=== PATIENT | female | born 1935 | race Caucasian/White ===

== ENCOUNTER → 2016-11-06 | Outpatient (CLI) | payer MEDICARE, BC ==
--- NOTE | 2016-11-06 13:42 | CT ---
EXAMINATION TYPE: CT shoulder RT wo con DATE OF EXAM: 11/06/2016 1:29 PM COMPARISON: NONE HISTORY: Preop planning, Pain and Primary Osteoarthritis CT DLP: 473 mGycm Automated exposure control for dose reduction was used. FINDINGS: Advanced osteoarthritic degenerative changes present at the right shoulder. Humeral head spurring is present. Spurring from the underlying is present. There is loss of the joint space. Portion of lung field included within the [id number] is clear acromioclavicular joint hypertrophy with downward spurring is present. Rotator cuff muscles are not well visualized. No obvious rotator c uff tear is not identified. No large joint effusion is evident. IMPRESSION: 1. ADVANCED OSTEOARTHRITIC DEGENERATIVE CHANGE AT THE GLENOHUMERAL JOINT LEFT SHOULDER. 2. ACROMIOCLAVICULAR JOINT HYPERTROPHY
== END | disposition home or self-care (01) ==
LOC: RADCTMAIN 12:02
PROVIDERS: ATTEND Orthopaedic Surgery Sports Medicine
DX: M19.011 Primary osteoarthritis, right shoulder (principal)

== ENCOUNTER → 2016-12-11 | Outpatient (CLI) | payer MEDICARE, BC ==
[2016-12-11 14:20] LABS: Amorphous Sediment,Urine Rare /hpf; Appearance,Urine Clear (Clear); Bacteria,Urine Rare /hpf; Basophils # (A) 0.1 k/uL (0-0.2); Basophils % (A) 2 %; Bilirubin,Urine Negative (Negative); CH 31.5; CHCM 31.4; Eosinophils # (A) 0.5 k/uL (0-0.7); Eosinophils % (A) 6 %; Glucose,Urine (UA) Negative (Negative); HCT 42.4 % (34.0-46.0); HDW 2.29; HGB 13.2 gm/dL (11.4-16.0); Ketones,Urine Negative (Negative); Leukocyte Esterase,Urine Small (Negative); Luc % (Auto) 2; Lymphocytes # (A) 1.1 k/uL (1.0-4.8); Lymphocytes % (A) 14 %; MCH 31.4 pg (25.0-35.0); MCHC 31.1 g/dL (31.0-37.0); Macrocytosis Slight; Mean Platelet Volume 8.7; Monocytes # (A) 0.4 k/uL (0-1.0); Monocytes % (A) 5 %; Neutrophils # (A) 5.9 k/uL (1.3-7.7); Neutrophils % (A) 72 %; Nitrite,Urine Negative (Negative); Particle Count 3032; Protein,Urine Negative (Negative); RBC,Urine 1 /hpf (0-5); RDW 13.8 % (11.5-15.5); Specific Gravity,Urine 1.005 (1.001-1.035); Squamous Epithelial Cell,Urine 1 /hpf (0-4); UA Billing (MACRO vs. MICRO) MICRO; Urobilinogen,Urine <2.0 mg/dL (<2.0); WBC 8.2 k/uL (3.8-10.6); WBC (Perox) 8.19; WBC,Urine 1 /hpf (0-5)
[2016-12-11 14:26] LABS: Partial Thromboplastin Time 24.4 sec (22.0-30.0); Prothrombin Time 10.5 sec (9.0-12.0)
[2016-12-11 14:34] LABS: ALT 28 U/L (9-52); AST 29 U/L (14-36); Alkaline Phosphatase 113 U/L (38-126); Anion Gap 8 mmol/L; Blood Urea Nitrogen 29 mg/dL (7-17); Calcium 9.5 mg/dL (8.4-10.2); Carbon Dioxide 30 mmol/L (22-30); Chloride 102 mmol/L (98-107); Glucose 114 mg/dL (74-99); Non-African American GFR(MDRD) 53 (>60 ml/min/1.73 sqM); Potassium 4.7 mmol/L (3.5-5.1); Sodium 140 mmol/L (137-145)
== END | disposition home or self-care (01) ==
LOC: LABPAT 13:46
PROVIDERS: ATTEND Orthopaedic Surgery Sports Medicine
DX: Z51.81 Encounter for therapeutic drug level monitoring (principal); Z79.01 Long term (current) use of anticoagulants
CPT/HCPCS: 80053; 81001; 85025; 85610; 85730; 87070

== ENCOUNTER 2016-12-18 10:47 | Inpatient (IN) | payer MEDICARE, BC ==
[2016-12-10 16:11] VITALS: BMI 33.1
[~2016-12-18 10:47] MED LIST: ACETAMINOPHEN TAB 500 MG TAB PO ONE; DEXAMETHASONE SOD PHOSPHATE 10 MG/ML 1 ML VIAL IV ONE; HYDROmorphone 1 MG/ML 1 ML SYRINGE IVP PRN; LACTATED RINGERS 1,000 ML IV SCH; LIDOCAINE 1% 20 ML VIAL (10MG/ML) FOR IV START INTRADERMA PRN; MELOXICAM 7.5 MG TAB PO ONE; MIDAZOLAM 2 MG/2 ML VIAL IV PRN; ONDANSETRON 4 MG/2 ML VIAL IVP ONE; SCOPOLAMINE 1.5MG/72HR PATCH TRANSDERM ONE; TRANEXAMIC ACID 1,000 MG in SODIUM CHLORIDE 0.9% 100 ML IVPB ONE; ceFAZolin 2 GM in SODIUM CHLORIDE 0.9% 100 ML IVPB ONE
[2016-12-18] MEDS ORDERED: NEOSTIGMINE 1 MG/ML 10 ML VIAL ONE (14:26)
[2016-12-18] MEDS ORDERED: MIDAZOLAM 2 MG/2 ML VIAL ONE (14:26)
[2016-12-18] MEDS ORDERED: fentaNYL (PF) 50 MCG/ML 2 ML AMP ONE (14:26)
[2016-12-18] MEDS ORDERED: SUCCINYLCHOLINE CHLORIDE 100 MG/5 ML SYR IV ONE (14:26)
[2016-12-18] MEDS ORDERED: GLYCOPYRROLATE 0.2 MG/ML 2 ML VIAL ONE (14:26)
[2016-12-18] MEDS ORDERED: TRANEXAMIC ACID 1,000 MG/10 ML VIAL ONE (14:26)
[2016-12-18] MEDS ORDERED: HYDROmorphone (PF) 1 MG/ML ONE (14:26)
[2016-12-18] MEDS ORDERED: SODIUM CHLORIDE 0.9% 100 ML BAG ONE (14:26)
[2016-12-18] MEDS ORDERED: LIDOCAINE 1% INJ 10MG/ML (20 ML MDV) ONE (14:26)
[2016-12-18] MEDS ORDERED: PROPOFOL 10 MG/ML 20 ML VIAL IV ONE (14:26)
[2016-12-18] MEDS ORDERED: ROCURONIUM BROMIDE 10 MG/ML 10 ML VIAL IV ONE (14:26)
[2016-12-18] MEDS ORDERED: ceFAZolin 3,000 MG in SODIUM CHLORIDE 0.9% IRRIGATIO 3,000 ML IRRIGATION ONE (15:14)
[2016-12-18] MEDS ORDERED: VANCOMYCIN 1,000 MG VIAL MISCELLANE ONE (15:22)
[2016-12-18] MEDS ORDERED: LACTATED RINGERS 1,000 ML IV ONE (16:16)
[2016-12-18] MEDS ORDERED: SENNOSIDES-DOCUSATE SODIUM 1 EACH TAB PO PRN (16:52)
[2016-12-18] MEDS ORDERED: ONDANSETRON 4 MG/2 ML VIAL IVP PRN (16:52)
[2016-12-18] MEDS ORDERED: METOCLOPRAMIDE 5 MG/ML 2 ML VIAL IVP PRN (16:52)
[2016-12-18] MEDS ORDERED: diphenhydrAMINE 25 MG CAP PO PRN (16:52)
[2016-12-18] MEDS ORDERED: HYDROmorphone 1 MG/ML 1 ML SYRINGE IVP PRN ×3 (16:52)
[2016-12-18] MEDS ORDERED: HYDROcodone/APAP 5-325MG 1 EACH TAB PO PRN (16:52)
[2016-12-18] MEDS ORDERED: TEMAZEPAM 15 MG CAP PO PRN (16:52)
[2016-12-18] MEDS ORDERED: PROCHLORPERAZINE SUPPOSITORY 25 MG SUPP RECTAL PRN (16:52)
[2016-12-18] MEDS ORDERED: HYDROmorphone 1 MG/ML 1 ML SYRINGE IVP ONE ×2 (17:08→17:14)
[2016-12-18] MEDS ORDERED: ONDANSETRON 4 MG/2 ML VIAL IVP ONE ×2 (17:19)
--- NOTE | 2016-12-18 17:21 | XR ---
EXAMINATION TYPE: XR shoulder limited RT DATE OF EXAM: 12/18/2016 5:15 PM COMPARISON: NONE HISTORY: Postop right shoulder surgery TECHNIQUE: Single view FINDINGS: There is a right shoulder prosthesis. Components appear in anatomic position. There is a la teral drain. IMPRESSION: Right shoulder prosthesis. No complicating process seen.
[2016-12-18] MEDS ORDERED: METOCLOPRAMIDE 5 MG/ML 2 ML VIAL IVP ONE (17:41)
[2016-12-18 18:08] LABS: Basophils % (A) 0 %; CH 30.6; Eosinophils % (A) 1 %; HCT 38.1 % (34.0-46.0); HDW 2.22; HGB 12.1 gm/dL (11.4-16.0); Hypochromasia Slight; Luc # (Auto) 0.06; Luc % (Auto) 1; Lymphocytes # (A) 0.6 k/uL (1.0-4.8); Lymphocytes % (A) 9 %; MCH 31.5 pg (25.0-35.0); MCHC 31.7 g/dL (31.0-37.0); MCV 99.4 fL (80.0-100.0); Mean Platelet Volume 8.4; Monocytes # (A) 0.1 k/uL (0-1.0); Monocytes % (A) 1 %; Neutrophils # (A) 6.5 k/uL (1.3-7.7); Neutrophils % (A) 88 %; RBC 3.83 m/uL (3.80-5.40); RDW 13.7 % (11.5-15.5); WBC 7.4 k/uL (3.8-10.6); WBC (Perox) 7.43
[2016-12-18] MEDS: HYDROcodone/APAP 5-325MG 1 EACH TAB PO PRN (19:08)
[2016-12-18] MEDS: LACTATED RINGERS 1,000 ML IV SCH (19:16)
[2016-12-18] MEDS: VALSARTAN 40 MG TAB PO SCH (21:14)
[2016-12-18] MEDS: MONTELUKAST 10 MG TAB PO SCH (21:14)
[2016-12-18] MEDS: DOXYCYCLINE 50 MG CAP PO SCH (21:14)
[2016-12-18] MEDS: FLECAINIDE 50 MG TAB PO SCH (21:14)
[2016-12-19] MEDS: LACTATED RINGERS 1,000 ML IV SCH ×3 (05:48→20:59)
[2016-12-19] MEDS: LEVOTHYROXINE 125 MCG TAB PO SCH (05:48)
[2016-12-19] MEDS: ASPIRIN 81 MG CHEW PO SCH (08:21)
[2016-12-19] MEDS: ceFAZolin 2 GM in SODIUM CHLORIDE 0.9% 100 ML IVPB SCH ×3 (08:21)
[2016-12-19] MEDS: DOXYCYCLINE 50 MG CAP PO SCH ×2 (08:21→20:56)
[2016-12-19] MEDS: LORATADINE 10 MG TAB PO SCH (08:22)
[2016-12-19] MEDS: FLECAINIDE 50 MG TAB PO SCH ×2 (08:22→20:56)
[2016-12-19] MEDS: hydrOXYzine PAMOATE 25 MG CAP PO PRN ×2 (08:23→17:24)
[2016-12-19] MEDS: HYDROcodone/APAP 5-325MG 1 EACH TAB PO PRN ×2 (08:23→17:24)
--- NOTE | 2016-12-19 10:30 | P.PN ---
Subjective Principal diagnosis: Status post right total shoulder arthroplasty Patient is a pleasant 81-year-old female seen at bedside this morning. She is postop day #1 status post right total shoulder arthroplasty/reverse total shoulder per Dr. Simon. Her pain is mostly controlled at the surgical site. She has no new complaints. She denies numbness or tingling in the upper extremity. Review of systems is negative for fever, chills, chest pain, shortness of breath, nausea, vomiting, headaches or other. Objective - Vital Signs Vital signs: Vital Signs Temp 97.7 F 12/19/16 07:00 Pulse 61 12/19/16 08:00 Resp 16 12/19/16 08:00 BP 125/65 12/19/16 07:00 Pulse Ox 98 12/19/16 07:00 Intake & Output 12/18/16 12/19/16 12/19/16 18:59 06:59 18:59 Intake Total 4800 Output Total 500 325 325 Balance 4300 -325 -325 Weight 84.822 kg 84.822 kg Intake: IV 4800 Output: Urine 100 325 325 Estimated Blood Loss 400 Other: Voiding Method Indwelling Catheter - Exam Inspection of the right shoulder reveals a benign surgical wound. There is no active bleeding, drainage or dehiscence. Sensation to light touch is intact throughout the right upper extremity. She has full motor at the elbow, wrist and hand. 2+ radial pulses present and less than 2 second capillary refill is present. - Constitutional General appearance: Present: no acute distress - Psychiatric Psychiatric: Present: A&O x's 3, appropriate affect, intact judgment & insight - Labs CBC & Chem 7: 12/18/16 17:44 Labs: Abnormal Lab Results - Last 24 Hours (Table) 12/18/16 Range/Units 17:44 Lymphocytes # 0.6 L (1.0-4.8) k/uL Assessment and Plan (1) Osteoarthritis of right shoulder Narrative/Plan: She'll continue with routine postop orthopedic protocol including pain management, wound care, DVT prophylaxis and medical management. The drain was discontinued without complication and new dressing was placed. She is pending extended care facility placement if she'll qualify otherwise she'll discharge to home likely tomorrow, December 20, 2016, and follow-up in office in [address] Simon. Status: Acute Time with Patient: Less than 30
[2016-12-19] MEDS: MULTIVITAMINS, THERA 1 EACH TAB PO SCH (12:26)
[2016-12-19] MEDS: VALSARTAN 40 MG TAB PO SCH ×2 (12:28→20:56)
[2016-12-19] MEDS: FUROSEMIDE 40 MG TAB PO SCH (13:06)
[2016-12-19] MEDS: FUROSEMIDE 20 MG TAB PO SCH (16:49)
[2016-12-19] MEDS: SPIRONOLACTONE 25 MG TAB PO SCH (16:49)
[2016-12-19] MEDS: MONTELUKAST 10 MG TAB PO SCH (20:56)
[2016-12-20] MEDS: LEVOTHYROXINE 125 MCG TAB PO SCH (05:08)
--- NOTE | 2016-12-20 09:12 | CONS ---
DATE OF CONSULTATION: 12/19/2016 REASON FOR CONSULTATION: Medical management requested by Dr. Simon. CONSULTATION: This is a pleasant 81 -year-old patient underwent right shoulder arthroplasty. Postprocedure, no nausea, vomiting. Did tolerate meals. The patient's chronic stable medical conditions include asthma, osteoarthritis, sleep apnea, hypothyroid. Denies any cardiac history. Sitting up in bed with right arm in support. Some pain is present. REVIEW OF SYSTEMS: CONSTITUTIONAL: None. HEENT: None. RESPIRATORY: None. CARDIOVASCULAR: None. GASTROINTESTINAL: None. GENITOURINARY: Stress incontinence. Dermatologic: None. HEMATOLOGIC: None. LYMPHATIC: None. PSYCHIATRY: None. NEUROLOGICAL: None. MUSCULOSKELETAL: Aches and pains in multiple joints. PAST MEDICAL HISTORY: History of asthma, osteoarthritis, sleep apnea, hypothyroid, urinary stress incontinence. PAST SURGICAL HISTORY: Breast surgery, hysterectomy, joint replacement, pacemaker. SOCIAL HISTORY: Does not smoke. Lives by himself. Alcohol rarely. FAMILY HISTORY: Kidney cancer. HOME MEDICATIONS: 1. Diovan 40 mg p.o. b.i.d. 2. Aldactone 25 mg. 3. Multivitamin 1 tablet p.o. daily. 4. Singulair 10 mg q.h.s. 5. ( ) 10 mg daily. 6. Synthroid 125 mcg p.o. daily. 7. Lasix 20 mg 3:00 p.m. and 40 mg morning. 8. Tambocor 50 mg p.o. q.12. 9. Vitamin D3, 2000 p.o. daily. 10. Aspirin 81 mg daily. 11. [place] 5 q.6 p.r.n. 12. Doxycycline 100 mg p.o. b.i.d. ALLERGIES TO SULFUR. On examination, temperature 98, pulse 51, respiratory rate 19, blood pressure 120/88, pulse ox 96% on 3 liters, and repeat 98% on room air. GENERAL APPEARANCE: Body mass index of 33.1, sitting in bed, not in distress. EYES: Pupils equal, conjunctivae normal. HEENT: External appearance of nose and ears normal. Oral cavity normal. NECK: JVD not raised. Mass not palpable. RESPIRATORY: Effort normal. Lungs are clear. CARDIOVASCULAR: First and second sounds normal. No edema. ABDOMEN: Soft, nontender. Liver and spleen not palpable. PSYCHIATRY: Alert and oriented x3. Mood and affect normal. EXTREMITIES: Right arm in a sling. MUSCULOSKELETAL: Evidence of osteoarthritis in multiple other joints. INVESTIGATIONS: White count 7.4, hemoglobin 12.1. ASSESSMENT: 1. Right total shoulder arthroplasty, right arm in a sling. 2. Mild intermittent asthma. 3. Primary osteoarthritis in multiple joints, bilateral. 4. Obstructive sleep apnea, CPAP machine. 5. Essential hypertension. 6. Hypothyroidism. 7. Chronic urinary stress incontinence. PLAN: Patient's home medications are resumed. DVT prophylaxis per Dr. Simon. Care was discussed with the patient. Pain is controlled. Patient follows with family doctor upon discharge. Thank you, Dr. Simon. Will follow.
--- NOTE | 2016-12-20 09:31 | OP ---
DATE OF SERVICE: 12/18/2016 SURGEON: JOCELYN VASQUEZ MD BENCH [employer]SEMBLY INSPECTOR: Jonh Alfaro PA-C. PREOPERATIVE DIAGNOSIS: Right shoulder advanced osteoarthrosis. POSTOPERATIVE DIAGNOSES: 1. Right shoulder advanced osteoarthrosis. 2. Right shoulder full-thickness rotator cuff tear. OPERATION: Right reverse total shoulder arthroplasty. ANESTHESIA: General endotracheal. ESTIMATED BLOOD LOSS: 400 mL. SPECIMENS REMOVED: COMPLICATIONS: None apparent. DRAINS: One deep drain. DISPOSITION: Postanesthesia care unit. OPERATIVE FINDINGS: INDICATIONS: Mrs. Garcia is a very pleasant 81-year-old female with long-standing right shoulder pain. Work-up including x-rays and CT scan revealed advanced glenohumeral osteoarthrosis of the right shoulder. At this point, she feels that she has failed conservative management and would like to proceed with operative intervention. The risks of the procedure were discussed with her in detail. These risks include, but are not limited to risk of infection, nerve damage, bleeding, pain, instability in the shoulder, loosening of implants and deep infection. There is also a small risk of deep vein deep vein thrombosis, which could lead to fatal pulmonary embolism. The patient understands the risks. All of her questions with regards to risks of the procedure were discussed with her and were answered to her satisfaction. Appropriate informed consent was obtained. DESCRIPTION OF THE PROCEDURE: Patient is identified in the preoperative holding area. Surgical site was marked by both the patient and myself. She was given 2 grams of Ancef IV for prophylactic purposes. She was transfer the operative suite. She was placed supine on the operating room table. General anesthetic was then administered and dosed per the anesthesia department without apparent complication. Examination under anesthesia was then performed of the right shoulder. She had passive elevation to 100 degrees, external rotation to side was to 20 degrees. The patient was then placed into the modified beach chair position, well padded in preparation for surgery. Great care was taken to ensure that her neck was in neutral alignment, well-padded and maintained that way throughout the operative procedure. Great care was also taken to pad her legs as well. The patient's right upper extremity was then prepped and draped usual sterile fashion. Standard surgical pause was then undertaken to ensure that we were operating on correct site and that appropriate preoperative antibiotics had been given. All staff in the room were in agreement and we proceeded. The acromion, AC joint, clavicle, and coracoid were marked with a surgical pen. A planned incision starting at the level of clavicle and extending distally over the deltopectoral interval approximately 1 cm lateral to the coracoid was marked with a surgical pen. This incision length is approximately 10 to 12 cm. The incision was then made with a 10 blade scalpel. Dissection was carried down sharply to the deltoid fascia. Hemostasis was achieved with electrocautery. The deltopectoral interval was then clearly identified at the level of clavicle. A small band retractor was then placed on the proximal deltoid. I then released the deltoid fascia on the lateral aspect of the cephalic vein. The vein was then preserved and left in its bed medially. The cephalic vein was protected throughout the remainder of the entire case. I then identified the clavipectoral fascia. This was incised proximally at the level of the coracoacromial ligament on the lateral aspect of the conjoined tendon. The coracoacromial ligament was then left intact. I then used my finger to spread the interval between the conjoined tendon and the subscapularis. I felt for the axillary nerve, which was readily palpable. I then cleared the subacromial and subdeltoid spaces of bursal and scar tissue. I then utilized a brown retractor to hold the deltoid and expose the humeral head. I then proceeded with release of the subscapularis. I first inspected the rotator cuff. She has a fairly sizable full-thickness tear of the supraspinatus. At this point, I made the decision to proceed with a reverse total shoulder arthroplasty given her age. Due to her age I feel the ability of the rotator cuff to reliably heal would be less than ideal and would subsequently put a standard anatomic total shoulder arthroplasty at risk. I then proceeded with releases of the subscapularis and the anterior inferior capsule. The subscapularis was released starting at the rotator interval and then intratendinously. The capsule and subscapularis release extended distally in a lazy S fashion, approximately 1 cm medial to the bicipital groove. I then continued to release the inferior capsule along the inferior neck in a vertical fashion, approximately 6 o'clock position. Great care was taken to ensure that the capsule was always visualized. It was released off of the bone to avoid injuring the axillary nerve. I then brought Santana business machine operator with the arm externally rotated and abducted. I continued to release the capsule inferomedially to the 4 o'clock position. The inferior osteophytes were now removed as well. This was done with rongeur. I then proceeded with preparation of the humerus. I removed all the goat's oconnor osteophytes. Then I removed the subchondral plate from the superior aspect of the humeral head using a large rongeur. I then used a starter reamer to gain access to the humeral canal. This was approximately 1 cm medial to the rotator cuff insertion and 1 cm posterior to the bicipital groove. I then prepared the humeral canal with hand reaming. I started with a 6 mm reamer and progressed in increments until firm resistance was encountered. This was at 10 mm. The reamer handle was then left in place. I then utilized the humeral resection guide. This was set at 30 years of retrotorsion. The cutting block was then set right at the insertion of the rotator cuff. I then proceeded to osteotomize the humeral head with an oscillating saw. I then removed the resection guide and then completed the osteotomy. I then proceeded with trial stem placement. A size 10 trial was then broached in the canal starting with 6 mm broach up to a 10 mm broach. A 10 mm trial stem was then placed and left in place. I then proceeded with exposure the glenoid. I inspected the joint for any loose bodies. The Bhattman retractor was then placed onto the posterior glenoid rim. The arm was then placed in approximately 70 degrees of abduction and in slight flexion on the Santana stand. I then proceeded to remove the hypertrophic labrum to definitively identify the actual glenoid. I then marked the center aspect of the glenoid. The guide with 10 degrees of inferior tilt was then placed flush with the glenoid. I then placed. I then placed a starting pin just inferior the center glenoid with a 10 degrees inferior tilt. I then proceeded with reaming. The baseplate reamer was then placed over the starting pin. This was advanced until it was flush with the glenoid. This preferentially resected more inferior bone than superior bone due to the 10 degree inferior tilt. I then placed a standard baseplate. This was then seated flush with the reamed glenoid. I then placed a 30 mm central screw. This screw had an excellent purchase in bone. I was able to rotate the scapula with the screw after it had been placed. I then proceeded to place the peripheral locking screws. The superior and inferior screws were placed and these were 20 mm screws. I did not place anterior and posterior screws. I then proceeded to place a size 36 glenosphere. This was preferentially dialed down in offset to inferiorly place the glenosphere as inferior as possible. The Cedillo taper was then dried and the glenosphere was then impacted into the baseplate. I then checked the glenosphere and it was securely impacted. I then proceeded to deliver the humeral head from the wound again. A size 36 standard baseplate was then placed onto the trial stem. Shoulder was then reduced. It was a fairly easy reduction. It was a little unstable once it was reduced. I then trialed with a +3 poly, standard baseplate. Again it was a fairly easy reduction. I then placed a +5 baseplate with a standard poly and this was a fairly difficult reduction. It was very stable once it was reduced. She had good motion. There was no evidence of impingement. I decided to go forward with a +5 tray and a standard poly. A bone hook was then utilized to re-dislocate the shoulder. Again, the proximal humerus delivered from the wound. The wound was thoroughly irrigated with sterile saline solution with antibiotic added. I then impacted a size 10 mini stem, in 30 degrees of retrotorsion. I then impacted the standard +5 tray in a standard poly onto the Cedillo taper of the stem. The shoulder was then reduced again. Again, it was fairly difficult reduction. The tension was excellent. She had minimal shuck. The conjoined tendon was inspected and there was no undue tension on the conjoined tendon to signify that I had over link in the arm. The shoulder was very stable throughout a range of motion. Again, there was no evidence of impingement. The wound again was thoroughly irrigated with sterile saline solution with antibiotic added. Deep drain was then placed and brought out superiorly away from the incision. I then placed of vancomycin powder within the wound. The deltopectoral interval was then closed loosely with 0 Vicryl interrupted suture. Prior to closure I did palpate the axillary nerve, which was intact. Again, the wound was thoroughly irrigated and then a second level of vancomycin powder was then placed into the wound. In total 1 gram of vancomycin powder was placed into the wound. The subcutaneous tissues then closed with 2-0 Vicryl interrupted suture and the skin was closed with a running 3-0 Quill suture. Dermabond was then applied to the incision. Sterile compressive dressings were then applied. The patient's right upper extremity was then placed into a standard sling. All sponge and needle counts were deemed correct prior to closure. The patient tolerated the procedure without apparent complication. She was transferred to recovery room in stable condition. Implants were a [employer] conference a reverse shoulder arthroplasty with a size 10 mini stem, a standard baseplate, a +5 tray and a standard poly.
[2016-12-20] MEDS: DOXYCYCLINE 50 MG CAP PO SCH (09:44)
[2016-12-20] MEDS: ASPIRIN 81 MG CHEW PO SCH (09:44)
[2016-12-20] MEDS: FUROSEMIDE 40 MG TAB PO SCH (09:45)
[2016-12-20] MEDS: FLECAINIDE 50 MG TAB PO SCH (09:45)
[2016-12-20] MEDS: LACTATED RINGERS 1,000 ML IV SCH (09:45)
[2016-12-20] MEDS: LORATADINE 10 MG TAB PO SCH (09:46)
[2016-12-20] MEDS: VALSARTAN 40 MG TAB PO SCH (09:46)
[2016-12-20] MEDS: HYDROcodone/APAP 5-325MG 1 EACH TAB PO PRN ×2 (09:52→15:18)
--- NOTE | 2016-12-20 10:19 | P.DS ---
Providers Date of admission: 12/18/16 10:47 Expected date of discharge: 12/20/16 Attending physician: Alhaji Simon Consults: 12/18/16 16:52 Consult Physician Routine Consulting Provider: Matty Wynn Consult Reason/Comments: post op medical management Do you want consulting provider notified?: Yes Primary care physician: Curtis Hammer - Discharge Diagnosis(es) (1) Osteoarthritis of right shoulder Current Visit: Yes Status: Acute Priority: Medium Hospital Course: This is a pleasant 81-year-old female who presented with osteoarthritis of the right shoulder who failed outpatient conservative therapy. She admitted for a right total shoulder arthroplasty performed by Dr. Alhaji Simon. The patient tolerated the procedure well and did well postoperatively. Condition on day of discharge stable. After further discussion with social media senior associate and her family, patient will be discharged home with home health care. Patient was cleared preoperatively for surgery by Dr. Hammer. Patient currently denies any nausea , vomiting, fever, or chills. Patient is eating and voiding freely without difficulty. Patient should remain nonweightbearing on the right upper extremity. She may remove dressing and shower 72 hours after discharge. She should maintain sling to right upper extremity at all times. She'll plan to follow up with Dr. Alhjai Simon in the office on 01/01/2017 and 11 AM. She is given prescriptions for [place] 5/325 mg 1 tab every 4 hours as needed for pain and doxycycline hyclate 10mg by mouth twice a day. Physical Exam on day of discharge: Patient is awake, alert, and oriented 3 Vital signs stable Good chest excursion with deep inspiration and expiration Abdomen soft nontender No signs or symptoms of DVT; no calf pain Dressing intact at the surgical site over the right shoulder; dressing is clean , dry, and intact Sling in place right upper extremity Active range of motion of the right elbow without significant difficulty Active full range of motion of the thumb on the fingers, and risks of the right upper extremity without difficulty Neurovascular intact right upper extremity Regulation Supervisor strength, thumb strength, interosseous strength, biceps strength, triceps strength, and shoulder strength positive sustained on the left Procedures: Right total shoulder arthroplasty Patient Condition at Discharge: Stable Plan - Discharge Summary New Discharge Prescriptions: Doxycycline Hyclate 100 mg PO BID #10 tab HYDROcodone/APAP 5-325MG [[place] 5-325] 1 tab PO Q4HR PRN #60 tab PRN Reason: Pain Discharge Medication List Aspirin 81 mg PO DAILY 12/10/16 [History] Cholecalciferol [Vitamin D3] 2,000 unit PO DAILY 12/10/16 [History] Flecainide [Tambocor] 50 mg PO Q12HR 12/10/16 [History] Furosemide [Lasix] 20 mg PO DAILY@1500 12/10/16 [History] Furosemide [Lasix] 40 mg PO DAILY 12/10/16 [History] Levothyroxine Sodium [Synthroid] 125 mcg PO DAILY 12/10/16 [History] Loratadine [Claritin] 10 mg PO DAILY 12/10/16 [History] Montelukast Sodium [Singulair] 10 mg PO HS 12/10/16 [History] Multivitamins, Thera [Multivitamin] 1 tab PO DAILY 12/10/16 [History] Spironolactone [Aldactone] 25 mg PO 1500 12/10/16 [History] Valsartan [Diovan] 40 mg PO BID 12/10/16 [History] Acetaminophen Tab [Tylenol Tab] 500 - 1,000 mg PO Q6HR PRN 12/11/16 [History] Doxycycline Hyclate 100 mg PO BID #10 tab 12/19/16 [Rx] HYDROcodone/APAP 5-325MG [[place] 5-325] 1 tab PO Q4HR PRN #60 tab 12/19/16 [Rx] Follow up Appointment(s)/Referral(s): Alhaji Simon MD [STAFF PHYSICIAN] - 01/01/17 11:00 am Activity/Diet/Wound Care/Special Instructions: Take meds as directed Follow up with Dr. Simon in office [phone] May shower in 72 hours Nonweightbearing right upper extremity Keep wound clean and dry [facility]- Discharge Disposition: HOME SELF-CARE
[2016-12-20] MEDS: MULTIVITAMINS, THERA 1 EACH TAB PO SCH (12:57)
[2016-12-20 13:03] VITALS: BP 118/55; PULSE 61; TEMP 98.1
[2016-12-20] MEDS: FUROSEMIDE 20 MG TAB PO SCH (15:18)
[2016-12-20] MEDS: SPIRONOLACTONE 25 MG TAB PO SCH (15:19)
[2016-12-20 15:45] VITALS: RESP 16
--- NOTE | 2016-12-20 21:11 | PN ---
DATE OF SERVICE: 12/20/2016 PRESENTING COMPLAINT: Right shoulder arthroplasty. INTERVAL HISTORY: This patient was seen by me this morning, doing much better. Some pain is present. Appetite has dwindled, comfortable otherwise. Review systems done for constitutional, cardiovascular, GI, pulmonary, musculoskeletal; relevant findings as above. Current medications are reviewed. On examination, temperature 98.1, temperature 97.7, pulse 62, respirations 18, blood pressure 126/57. Pulse ox 93% on 3L. GENERAL APPEARANCE: Lying in bed, comfortable. EYES: Pupils equal. Conjunctivae normal. NECK: JVD not raised. Mass not palpable. RESPIRATORY: Effort normal. Lungs are clear. CARDIOVASCULAR: First and second sounds normal. No edema. ABDOMEN: Soft, nontender. Liver and spleen not palpable. PSYCHIATRY: Alert and oriented x3. Mood and affect normal. EXTREMITIES: Right arm in a sling. Sensation preserved in the hand. INVESTIGATIONS: No blood work from today. ASSESSMENT: 1. Right total shoulder arthroplasty. Right arm in a sling. 2. Mild intermittent asthma. 3. Primary osteoarthritis of multiple joints, bilateral. 4. Obstructive sleep apnea, continuous positive airway pressure machine used. 5. Essential hypertension. 6. Hypothyroidism. 7. Chronic urinary stress incontinence. PLAN: Continue medications and treatment plan. If discharged, should follow with the family doctor.
== END 2016-12-20 15:15 | disposition home health service (06) | DRG 483 ==
LOC: 2ORMAIN 10:47 → 3SUR 16:52
PROVIDERS: ADMIT Orthopaedic Surgery Sports Medicine; ATTEND Orthopaedic Surgery Sports Medicine
PROC: 0RRJ00Z Replacement of Right Shoulder Joint with Reverse Ball and Socket Synthetic Substitute, Open Approach (ICD-10-PCS; principal; 2016-12-18 13:55)
DX: M19.011 Primary osteoarthritis, right shoulder (principal); I10 Essential (primary) hypertension; E03.9 Hypothyroidism, unspecified; M19.91 Primary osteoarthritis, unspecified site; M75.121 Complete rotator cuff tear or rupture of right shoulder, not specified as traumatic; J45.20 Mild intermittent asthma, uncomplicated; G47.33 Obstructive sleep apnea (adult) (pediatric); N39.3 Stress incontinence (female) (male); Z90.710 Acquired absence of both cervix and uterus; Z96.60 Presence of unspecified orthopedic joint implant; Z95.0 Presence of cardiac pacemaker; Z79.82 Long term (current) use of aspirin; Z79.899 Other long term (current) drug therapy
CPT/HCPCS: 85025; 88305; 88311

== ENCOUNTER 2018-02-22 02:29 | Observation (INO) | payer MEDICARE, BC ==
[2018-02-22] MEDS ORDERED: NALOXONE 0.4 MG/ML 1 ML VIAL IV PRN (02:41)
[2018-02-22] MEDS ORDERED: SODIUM CHLORIDE 0.9% 1,000 ML IV SCH (02:45)
--- NOTE | 2018-02-22 02:47 | ED ---
Dizziness HPI - General Chief Complaint: Syncope Stated Complaint: Neuro Problems Time Seen by Provider: 02/22/18 02:41 Source: patient, EMS Mode of arrival: EMS Limitations: no limitations - History of Present Illness Initial Comments: This patient is an 82-year-old woman transferred here from the outside hospital to have further evaluation after a near syncopal episode. The patient states that she was in the act of taking her garbage out tonight. She was walking down the driveway carrying it when she began feeling like she would pass out. She was feeling a bit short of breath and sweaty. She states that she had to lean over the garbage can to keep from falling over. The patient's daughter came to her home and when the patient was not feeling better after 20-30 minutes called EMS. The ambulance brought the patient to the other hospital and it was during the ride there that she began to feel better. The patient states that she is only feeling somewhat fatigued now, all of the original symptoms have resolved. Patient denies any chest pain at the time. MD Complaint: near syncope -: hour(s) Timing: sudden onset Description: lightheadedness, nausea History of Same: No History of Trauma: No Severity: severe - Related Data Home Medications Medication Instructions Recorded Confirmed Aspirin 81 mg PO DAILY 12/10/16 02/22/18 Cholecalciferol [Vitamin D3] 2,000 unit PO DAILY 12/10/16 02/22/18 Furosemide [Lasix] 20 mg PO DAILY@1500 12/10/16 02/22/18 Levothyroxine Sodium [Synthroid] 125 mcg PO DAILY 12/10/16 02/22/18 Loratadine [Claritin] 10 mg PO DAILY 12/10/16 02/22/18 Montelukast Sodium [Singulair] 10 mg PO HS 12/10/16 02/22/18 Albuterol Inhaler [Ventolin Hfa 1 - 2 puff INHALATION RT-Q6H PRN 02/22/18 Inhaler] Apixaban [Eliquis] 5 mg PO BID 02/22/18 02/22/18 Flecainide Acetate 100 mg PO Q12H 02/22/18 02/22/18 Furosemide [Lasix] 40 mg PO DAILY 02/22/18 02/22/18 Ubidecarenone [Co Q-10] 100 mg PO DAILY 02/22/18 02/22/18 Previous Rx's Medication Instructions Recorded Cefuroxime Axetil [Ceftin] 500 mg PO BID #6 tab 02/23/18 Metoprolol Succinate (ER) [Toprol 50 mg PO DAILY #30 tab.er.24h 02/24/18 XL] Valsartan [Diovan] 40 mg PO BID #60 tab 02/24/18 Allergies Allergy/AdvReac Type Severity Reaction Status Date / Time Sulfa (Sulfonamide Allergy Rash/Hives Verified 02/22/18 12:24 Antibiotics) Review of Systems ROS Statement: Those systems with pertinent positive or pertinent negative responses have been documented in the HPI. ROS Other: All systems not noted in ROS Statement are negative. Past Medical History Past Medical History: Asthma, Osteoarthritis (OA), Sleep Apnea/CPAP/BIPAP, Thyroid Disorder Additional Past Medical History / Comment(s): ARRHYTHMIA History of Any Multi-Drug Resistant Organisms: None Reported Past Surgical History: Breast Surgery, Hysterectomy, Joint Replacement, Pacemaker Additional Past Surgical History / Comment(s): CATARACT SURGERY, RIGHT AND LEFT KNEE, ARTHROSCOPIC RIGHT AND LEFT KNEE, Past Anesthesia/Blood Transfusion Reactions: No Reported Reaction Type of Cardiac Device: Permanent Pacemaker Device Placement Date:: 10/28/2011 Past Psychological History: No Psychological Hx Reported Smoking Status: Never smoker Past Alcohol Use History: Rare Past Drug Use History: None Reported - Past Family History Mother Family Medical History: Cancer Additional Family Medical History / Comment(s): KIDNEY CANCER General Exam Limitations: no limitations General appearance: alert, in no apparent distress Head exam: Present: atraumatic, normocephalic Eye exam: Present: normal appearance. Absent: scleral icterus, conjunctival injection ENT exam: Present: normal oropharynx Neck exam: Present: normal inspection, full ROM Respiratory exam: Present: normal lung sounds bilaterally. Absent: respiratory distress, wheezes, rales, rhonchi, stridor Cardiovascular Exam: Present: regular rate, normal rhythm, systolic murmur. Absent: diastolic murmur, rubs, gallop GI/Abdominal exam: Present: soft. Absent: distended, tenderness, guarding, rebound, rigid Extremities exam: Present: normal inspection, normal capillary refill. Absent: pedal edema, calf tenderness Back exam: Absent: CVA tenderness (R), CVA tenderness (L) Neurological exam: Present: alert Skin exam: Present: warm, dry, intact, normal color. Absent: rash Course Vital Signs 02/22/18 02/22/18 02/22/18 02:34 03:02 04:00 Temperature Pulse Rate 104 H 109 H 100 Respiratory 18 16 16 Rate Blood Pressure 156/105 149/96 150/97 O2 Sat by Pulse 95 100 97 Oximetry 02/22/18 04:15 Temperature 97.7 F Pulse Rate Respiratory Rate Blood Pressure O2 Sat by Pulse Oximetry EKG Findings - EKG Comments: EKG Findings:: The 12-lead ECG demonstrates what appears to be underlying atrial fibrillation and there are sections of paced rhythm as well, the rate is 100 BPM. - EKG Results: EKG: interpreted by ERMD, normal axis - Blocks, Antoine, Hypertrophy, ST Abn: AV and intraventricular conduction: right bundle branch block (fixed/ intermittent, complete/incomplete) (Incomplete) Repolarization changes or abnormalities: nonspecific abnormality, ST segment, and/or T wave Medical Decision Making - Lab Data Result diagrams: 02/24/18 06:22 02/24/18 06:22 Disposition Clinical Impression: Near syncope Disposition: ADMITTED IP TO THIS [facility] Condition: Fair Is patient prescribed a controlled substance at d/c from ED?: No
[2018-02-22] MEDS ORDERED: NITROGLYCERIN SL TABS 0.4 MG TAB SUBLINGUAL PRN (03:11)
[2018-02-22] MEDS ORDERED: HYDROcodone/APAP 5-325MG 1 EACH TAB PO PRN (03:14)
[2018-02-22] MEDS: LEVOTHYROXINE 125 MCG TAB PO SCH (06:24)
[2018-02-22] MEDS: CHOLECALCIFEROL 1,000 UNIT TAB PO SCH (08:17)
[2018-02-22] MEDS: MULTIVITAMINS, THERA 1 EACH TAB PO SCH (08:18)
[2018-02-22] MEDS: VALSARTAN 40 MG TAB PO SCH ×2 (08:18→21:58)
[2018-02-22] MEDS ORDERED: FLECAINIDE 50 MG TAB PO SCH (09:00)
--- NOTE | 2018-02-22 11:38 | P.CNNES ---
History of Present Illness Consult date: 02/22/18 History of Present Illness: The patient is an 82-year-old right-handed white female been having dizzy spells for the past several weeks. She states that she feels a lightheadedness as if she needs to sit down. Yesterday she felt so bad that while taking out the trash that she had a lean against trash can. She also felt sweaty. She denied any neurologic complaints such as focal weakness numbness tingling visual disturbance loss of speech or vertigo. Next Patient sees an ENT doctor for her right ear tube that has been draining constantly and recent ear infection. She saw him last week. Patient has a pacemaker. She was hospitalized August because of malfunction of her pacemaker. Patient was started on Alquist at the time. Next The patient was transferred here from an outside hospital for according to the patient and MRI. The patient does have a pacemaker however. The patient had a CT brain at the outside hospital which showed a medial has no mass possible goiter. CAT scan of the brain was unremarkable. Review of Systems Constitutional: Denies chills, Denies fever Eyes: denies blurred vision, denies pain Ears, nose, mouth and throat: Denies headache, Denies sore throat Cardiovascular: Denies chest pain, Denies shortness of breath Respiratory: Denies cough Musculoskeletal: Denies myalgias Neurological: Denies numbness, Denies weakness Past Medical History Past Medical History: Asthma, Osteoarthritis (OA), Sleep Apnea/CPAP/BIPAP, Thyroid Disorder Additional Past Medical History / Comment(s): ARRHYTHMIA History of Any Multi-Drug Resistant Organisms: None Reported Past Surgical History: Breast Surgery, Hysterectomy, Joint Replacement, Pacemaker Additional Past Surgical History / Comment(s): CATARACT SURGERY, RIGHT AND LEFT KNEE, ARTHROSCOPIC RIGHT AND LEFT KNEE, Past Anesthesia/Blood Transfusion Reactions: No Reported Reaction Type of Cardiac Device: Permanent Pacemaker Device Placement Date:: 10/28/2011 Past Psychological History: No Psychological Hx Reported Smoking Status: Never smoker Past Alcohol Use History: Rare Past Drug Use History: None Reported - Past Family History Mother Family Medical History: Cancer Additional Family Medical History / Comment(s): KIDNEY CANCER Medications and Allergies Home Medications Medication Instructions Recorded Confirmed Type Aspirin 81 mg PO DAILY 12/10/16 12/18/16 History Cholecalciferol [Vitamin D3] 2,000 unit PO DAILY 12/10/16 12/18/16 History Flecainide [Tambocor] 50 mg PO Q12HR 12/10/16 12/18/16 History Furosemide [Lasix] 20 mg PO DAILY@1500 12/10/16 12/18/16 History Furosemide [Lasix] 40 mg PO DAILY 12/10/16 12/18/16 History Levothyroxine Sodium [Synthroid] 125 mcg PO DAILY 12/10/16 12/18/16 History Loratadine [Claritin] 10 mg PO DAILY 12/10/16 12/18/16 History Montelukast Sodium [Singulair] 10 mg PO HS 12/10/16 12/18/16 History Multivitamins, Thera [Multivitamin] 1 tab PO DAILY 12/10/16 12/18/16 History Spironolactone [Aldactone] 25 mg PO 1500 12/10/16 12/18/16 History Valsartan [Diovan] 40 mg PO BID 12/10/16 12/18/16 History Acetaminophen Tab [Tylenol Tab] 500 - 1,000 mg PO Q6HR PRN 12/11/16 12/18/16 History Doxycycline Hyclate 100 mg PO BID #10 tab 12/19/16 Rx HYDROcodone/APAP 5-325MG [[place] 1 tab PO Q4HR PRN #60 tab 12/19/16 Rx 5-325] Allergies Allergy/AdvReac Type Severity Reaction Status Date / Time Sulfa (Sulfonamide Allergy Rash/Hives Verified 12/18/16 19:03 Antibiotics) Physical Examination - Vital Signs Vital Signs: Vital Signs Temp Pulse Pulse Resp BP BP Pulse Ox 02/22/18 07:00 98.0 F 113 H 16 134/91 95 02/22/18 04:15 97.7 F 02/22/18 04:00 100 16 150/97 97 02/22/18 03:02 109 H 16 149/96 100 02/22/18 02:34 104 H 18 156/105 95 Intake and Output 02/21/18 02/22/18 02/22/18 22:59 06:59 14:59 Other: Weight 127.006 kg - Constitutional General appearance: cooperative - EENT EENT: PERRL - Respiratory Respiratory: lungs clear - Cardiovascular Cardiovascular: regular rate, normal S1, normal S2 - Integumentary Integumentary: normal - Neurologic Mental status: She was awake alert and oriented. There is no a aphasia or dysarthria. Cranial nerve examination: PERRL, EOMI, face symmetric, tongue midline Speech examination: intact Detailed motor examination: grossly full strength in all extremities Detailed sensory examination: intact - Psychiatric Psychiatric: mood/affect appropriate Assessment and Plan (1) Near syncope Current Visit: Yes Status: Acute SNOMED Code(s): 806066568 Plan: The patient is a 82-year-old woman with history of near syncope. She has been having episodes of lightheadedness as if she is going to pass out but there was no loss of consciousness. The patient does have tachycardia. She has a pacemaker. She is had a CTA at the outside hospital which did not show any significant stenosis. She has also had a CT brain which did not show any acute findings. The patient states she was placed on eliquis by her rigger up. Recommend cardiology evaluation.
[2018-02-22 13:24] LABS: Basophils # (A) 0.1 k/uL (0-0.2); Basophils % (A) 1 %; Eosinophils # (A) 0.6 k/uL (0-0.7); Eosinophils % (A) 9 %; HCT 41.4 % (34.0-46.0); HGB 12.7 gm/dL (11.4-16.0); Hypochromasia Marked; Lymphocytes % (A) 17 %; MCH 28.7 pg (25.0-35.0); MCHC 30.6 g/dL (31.0-37.0); MCV 93.7 fL (80.0-100.0); Monocytes # (A) 0.5 k/uL (0-1.0); Monocytes % (A) 8 %; Neutrophils # (A) 3.9 k/uL (1.3-7.7); Neutrophils % (A) 64 %; Platelet Count 198 k/uL (150-450); RBC 4.42 m/uL (3.80-5.40); RDW 15.4 % (11.5-15.5); WBC 6.1 k/uL (3.8-10.6)
[2018-02-22 13:29] LABS: Albumin 3.3 g/dL (3.5-5.0); Calcium 8.9 mg/dL (8.4-10.2); Potassium 3.8 mmol/L (3.5-5.1); Total Bilirubin 0.6 mg/dL (0.2-1.3); Total Protein 5.8 g/dL (6.3-8.2)
[2018-02-22] MEDS: SODIUM CHLORIDE 0.9% 1,000 ML IV SCH (13:35)
[2018-02-22] MEDS ORDERED: ALBUTEROL NEBULIZED 2.5 MG/3 ML INHALATION PRN (13:55)
[2018-02-22] MEDS ORDERED: FLECAINIDE 50 MG TAB PO ONE (14:15)
--- NOTE | 2018-02-22 14:30 | HP ---
HISTORY AND PHYSICAL CHIEF COMPLAINT: Presyncope and weakness. HISTORY OF PRESENT ILLNESS: This 82-year-old woman with a past medical history of multiple medical problems including asthma, DJD, history of sleep apnea, history of hypothyroidism, history of breast surgery, history of cataract surgery, being followed in the outpatient setting. Yesterday was taking the trash out. The patient felt dizzy, almost going to pass out. The patient slumped down to the trash can and the patient got back to the garage where the patient was in the garage. The patient called 911, because of lack of service, patient tried again to get to the car and then drive the car and called 911. Patient subsequently transferred to [facility] and admitted for further evaluation and treatment. There is no history of fever, rigors. No history of headache, loss of consciousness, seizures at this time. The patient also has features of UTI elsewhere. PAST MEDICAL HISTORY: History of DJD, sleep apnea, hypothyroidism, history of breast surgery, history of cataract surgery. MEDICATIONS: Prior to admission include: 1. Sadorus 1 p.o. q.4h p.r.n. 2. Aspirin 320 mg daily. 3. Vitamin D3 2000 daily. 4. Tambocor 50 mg p.o. b.i.d. 5. Synthroid 125 mcg. 6. Singular 10 mg q.h.s. 7. Multivitamins. 8. Narcan. 9. Nitrostat. 10.Aldactone. 11.Diovan. ALLERGIES: SULFA. FAMILY HISTORY: History of kidney cancer in the family. SOCIAL HISTORY: No history of smoking. No history of alcohol. REVIEW OF SYSTEMS: ENT: As mentioned earlier. Cardiovascular no angina or palpitations. Respirations: As mentioned earlier. GI: As mentioned earlier. no dysuria or hematuria. Central nervous system: As mentioned earlier. Allergy/Immunology: No asthma or hayfever. MUSCULOSKELETAL: As mentioned earlier. HEMATOLOGY/ONCOLOGY: No history of anemia. Endocrine: No history of diabetes or hypothyroidism. Constitutional: As mentioned earlier. Dermatology: Negative. Rheumatology: Negative. Psychiatric: As mentioned earlier. PHYSICAL EXAMINATION: Alert, and oriented times three. Pulse 101. Blood pressure 135/87, respiration 16, temperature 98.7, orthostatic changes present. Blood pressure is 119/71 standing up, pulse ox is 93% on room air. HEENT: Conjunctivae normal. Oral mucosa moist. NECK is no jugular venous distention. No carotid bruit. No lymph node enlargement. CARDIOVASCULAR system: S1, S2 muffled. RESPIRATIONS: Breath sounds diminished in the bases. A few scattered rhonchi. No crackles. ABDOMEN: Soft, obese, nontender. No mass. LEGS no edema. No swelling. Discoloration secondary to cellulitis present. NERVOUS SYSTEM: Higher functions as mentioned earlier, moves all 4 limbs, no focal motor or sensory deficits. LYMPHATICS: No lymph nodes palpable in the neck, axillae or groin. SKIN as mentioned earlier. JOINTS: No active deforming arthropathy. LABS: Noted. EKG shows paced rhythm and baseline atrial fibrillation. ASSESSMENT: 1. Presyncope and possible orthostatic hypotension rule out cardiac arrhythmia. 2. Orthostatic hypotension and dehydration. 3. History atrial fibrillation, pacemaker. 4. Urinary tract infection. 5. Sleep apnea. 6. Degenerative joint disease. 7. History of asthma. 8. History of hypothyroidism. 9. History of degenerative joint disease. 10.History of cataract surgery. RECOMMENDATIONS AND DISCUSSION: In this 82-year-old woman who presented with multiple complex medical issues. At this time, we will monitor the patient closely. Continue IV fluids. Orthostatic vitals. I would also recommend empiric antibiotics for UTI. Follow the cultures. Closely follow with Neurology, Cardiology. Prognosis guarded because of multiple complex medical issues. Further recommendations to follow. As mentioned earlier, the etiology of the present symptomatology is complex and I would recommend resume the home medications as well. Further recommendations to follow. Hold diuretics for now. The patient is also on apixaban. MMODL / IJN: [id number] / [facility] HOSPITALJuan Diego
[2018-02-22] MEDS: cefTRIAXone IN SWFI 1,000 MG/10 ML SYRINGE IVP SCH (15:43)
[2018-02-22] MEDS: SPIRONOLACTONE 25 MG TAB PO SCH (15:43)
[2018-02-22] MEDS: ACETAMINOPHEN TAB 325 MG TAB PO PRN ×2 (17:28→22:31)
--- NOTE | 2018-02-22 21:21 | CONS ---
CONSULTATION Marialuisa Garcia is an 82-year-old obese lady who lives in the [place] area. 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 She has chronic atrial fibrillation, sick sinus syndrome with underlying permanent pacemaker. She has had a history of bilateral knee surgery. She was taking the garbage out yesterday. Prior to that, about 2 to 3 days ago, she had a ear infection and she is recovering from this and was advised some ear drops. However, she tried to take the garbage out yesterday evening and as she walked with the garbage can to the driveway, she felt dizzy and lightheaded. She felt she was going to pass out. The whole place was spinning. She held onto the garbage can and slowly lowered herself. It appears that her episode was more of a acute vertigo may be related to underlying ear infection, which may have precipitated the issue. She did not lose consciousness. She is stable hemodynamically. Her pacemaker was checked within the last 1 month and is functioning well. She has underlying history of hypertension, but no prior myocardial infarction or CVA. Her pacemaker has been checked very recently. PAST MEDICAL HISTORY: Remarkable for osteoarthritis, sleep apnea, uses a BiPAP, has underlying thyroid disorder, atrial fibrillation chronic with underlying pacemaker and bilateral knee arthroplasty in the past. MEDICATIONS: At home include aspirin, flecainide 50 mg q.12 hours, Lasix 20 mg b.i.d., levothyroxine 125 mcg daily, Singulair, multivitamins, Aldactone, Diovan. ALLERGIES: SULFA. REVIEW OF SYSTEMS: Remarkable for limited physical activity. No hematemesis, melena fever with chills or cough with expectoration. EXAMINATION: Blood pressure is 130/80 without orthostatic changes. HEENT: Unremarkable. Fundus was not examined by me. NECK: Supple. There is JVD of 1 cm. No carotid bruit. Heart exam reveals S1, S2 with a regular rhythm, short systolic murmur. Lungs reveal bilateral air entry. Abdomen is distended, nontender. Lower extremities reveal bilateral pigmentation, mild chronic venous insufficiency. Diminished pulses. CENTRAL NERVOUS SYSTEM: Grossly no focal deficits. EKG revealed atrial fib controlled rate with ventricular paced beats. IMPRESSION: 1. Episode of dizziness and lightheadedness, probably vertigo related to underlying ear infection. 2. No evidence of cardiogenic syncope. 3. History of atrial fibrillation with sick sinus syndrome and permanent pacemaker that has been checked. 4. Hypertension. RECOMMENDATIONS: From a cardiac standpoint no aggressive intervention necessary. I am recommending that we will continue telemetry till tomorrow. Give her some 0.9 saline 75 mL/hour. She has no orthostatic changes. We will check an echocardiogram to assess LV function. I discussed my thoughts in detail with the patient and daughter. Thank you very much for the consult. MMCHANTELL / IJN: [id number] /
[2018-02-22] MEDS: FLECAINIDE 50 MG TAB PO SCH (21:58)
[2018-02-22] MEDS: APIXABAN 5 MG TAB PO SCH (21:58)
[2018-02-22] MEDS: MONTELUKAST 10 MG TAB PO SCH (21:58)
[2018-02-23] MEDS: LEVOTHYROXINE 125 MCG TAB PO SCH (07:01)
[2018-02-23 07:23] LABS: Basophils % (A) 1 %; Eosinophils # (A) 0.6 k/uL (0-0.7); Eosinophils % (A) 11 %; HCT 40.7 % (34.0-46.0); HGB 12.3 gm/dL (11.4-16.0); Hypochromasia Slight; Lymphocytes # (A) 1.1 k/uL (1.0-4.8); Lymphocytes % (A) 21 %; MCHC 30.3 g/dL (31.0-37.0); MCV 92.5 fL (80.0-100.0); Mean Platelet Volume 8.1; Monocytes # (A) 0.4 k/uL (0-1.0); Monocytes % (A) 8 %; Neutrophils # (A) 3.1 k/uL (1.3-7.7); Neutrophils % (A) 58 %; Platelet Count 205 k/uL (150-450); RDW 15.2 % (11.5-15.5); WBC 5.3 k/uL (3.8-10.6)
[2018-02-23 07:26] LABS: Calcium 8.6 mg/dL (8.4-10.2); Potassium 3.7 mmol/L (3.5-5.1)
[2018-02-23] MEDS: VALSARTAN 40 MG TAB PO SCH ×2 (08:45→20:08)
[2018-02-23] MEDS: LORATADINE 10 MG TAB PO SCH (08:45)
[2018-02-23] MEDS: CHOLECALCIFEROL 1,000 UNIT TAB PO SCH (08:45)
[2018-02-23] MEDS: APIXABAN 5 MG TAB PO SCH ×2 (08:45→20:08)
[2018-02-23] MEDS: FLECAINIDE 50 MG TAB PO SCH ×2 (08:46→20:08)
[2018-02-23] MEDS: SODIUM CHLORIDE 0.9% 1,000 ML IV SCH ×2 (08:50→17:21)
[2018-02-23] MEDS ORDERED: NON-FORMULARY DRUG (Ubidecarenone [Co Q-10] 100 MG) PO SCH (09:00)
[2018-02-23] MEDS ORDERED: ASPIRIN 325 MG TAB PO SCH ×2 (09:00)
--- NOTE | 2018-02-23 09:18 | P.PN ---
Subjective Mrs. Garcia is a pleasant 82-year-old female past medical history significant for atrial fibrillation on termite treater anticoagulation with Eliquis, sick sinus syndrome s/p pacemaker implantation, hypertension and sleep apnea and recent diagnosis of ear infection. She follows with Dr. Mcclure in [place]. She denies history of coronary artery disease. Telemetry tracings reveal atrial fibrillation with rate between 90-115. Toprol was not resumed since admission. She denies any further symptoms of dizziness since admission. Pacemaker was checked with her primary health sciences dean 01/27. Echocardiogram has been obtained and was evaluated at the bedside by Dr. Kent, shows mild basal- inferior hypokinesia. We have discussed with the patient stress testing and she wants to follow up with Dr. Mcclure upon discharge and have this done in his office. Laboratory data reviewed, hgb 12.3, plt 205, sodium 143, potassium 3.7, creatinine 0.84. Objective - Vital Signs Vital signs: Vital Signs Temp 97.6 F 02/23/18 07:42 Pulse 111 H 02/23/18 07:42 Resp 16 02/23/18 07:42 BP 135/89 02/23/18 07:42 Pulse Ox 95 02/23/18 07:42 Intake & Output 02/22/18 02/23/18 02/23/18 18:59 06:59 18:59 Intake Total 236 236 Balance 236 236 Intake: Oral 236 236 Other: Voiding Method Toilet Toilet # Voids 1 # Bowel Movements 1 - Exam Blood pressure 135/89 heart rate 111 afebrile and maintaining oxygen saturation on room air. GENERAL: Well-appearing, well-nourished and in no acute distress. Obese. NECK: Supple without JVD or thyromegaly. LUNGS: Breath sounds clear to auscultation bilaterally. Respiration equal and unlabored. No wheezes, rales or rhonchi. HEART: Irregular rate and rhythm with systolic ejection murmur at the base, no rubs or gallops. S1 and S2 heard. EXTREMITIES: Normal range of motion, trace bilateral edema with chronic pigmentation changes and evidence of weeping to left lower extremity. No clubbing or cyanosis. Peripheral pulses intact. - Labs CBC & Chem 7: 02/23/18 06:35 02/23/18 06:35 Labs: Abnormal Lab Results - Last 24 Hours (Table) 02/22/18 02/22/18 02/23/18 Range/Units 09:09 09:09 06:35 MCHC 30.6 L 30.3 L (31.0-37.0) g/dL Carbon Dioxide (22-30) mmol/L BUN 22 H (7-17) mg/dL Glucose 180 H (74-99) mg/dL Total Protein 5.8 L (6.3-8.2) g/dL Albumin 3.3 L (3.5-5.0) g/dL 02/23/18 Range/Units 06:35 MCHC (31.0-37.0) g/dL Carbon Dioxide 31 H (22-30) mmol/L BUN 18 H (7-17) mg/dL Glucose 105 H (74-99) mg/dL Total Protein (6.3-8.2) g/dL Albumin (3.5-5.0) g/dL Microbiology - Last 24 Hours (Table) 02/22/18 Unknown Urine Culture - Preliminary Urine,Voided Assessment and Plan Assessment: ASSESSMENT 1. Pre-syncope with recent ear infection, dizziness most likely related to vertigo 2. Paroxysmal atrial fibrillation on termite treater anti-coagulation with Eliquis 3. Sick sinus syndrome s/p permanent pacemaker implantation 4. Hypertension PLAN Echocardiogram obtained and reviewed per Dr. Kent. Indicated normal LV function with mild basal/inferior hypokinesia. Resume toprol and lasix at home doses. Change aspirin to 81 mg daily. Once toprol has been given continue to watch for a couple hours to ensure heart rate has normalized. If her heart rate is under control she is stable from a cardiac perspective. Follow-up with her primary health sciences dean upon discharge for outpatient stress testing. The above impression and plan of care have been discussed and directed by the signing physician. Brenda Chi, nurse practitioner, acting as scribe for signing physician.
[2018-02-23] MEDS: cefTRIAXone IN SWFI 1,000 MG/10 ML SYRINGE IVP SCH (09:23)
[2018-02-23] MEDS: METOPROLOL SUCCINATE (ER) 25 MG TAB.ER.24H PO SCH (09:24)
[2018-02-23] MEDS: FUROSEMIDE 20 MG TAB PO SCH ×2 (09:30→14:40)
--- NOTE | 2018-02-23 12:32 | ECHOF ---
Referral Reason:syncope MEASUREMENTS -------- HEIGHT: 160.0 cm WEIGHT: 127.0 kg BP: 146/97 IVSd: 1.3 cm (0.6 - 1.1) LVIDd: 4.5 cm (3.9 - 5.3) LVPWd: 1.2 cm (0.6 - 1.1) IVSs: 1.5 cm LVIDs: 2.7 cm LVPWs: 1.9 cm LAESV Index (A-L): 37.60 ml/m Ao Diam: 2.9 cm (2.0 - 3.7) AV Cusp: 1.4 cm (1.5 - 2.6) LA Diam: 3.0 cm (2.7 - 3.8) MV E Gene: 1.50 m/s MV DecT: 83 ms MV A Gene: 0.77 m/s MV E/A Ratio: 1.96 RAP: 5.00 mmHg RVSP: 30.35 mmHg FINDINGS -------- Paced rhythm. This was a technically good study. The left ventricular size is normal. There is mild concentric left ventricular hypertrophy. Overa ll left ventricular systolic function is mildly impaired with, an EF between 45 - 50 %. Basal infer olateral hypokinesis. The right ventricle is normal in size and function. The left atrium is normal in size. The right atrium is normal in size. Aortic valve is trileaflet and is mildly thickened. The mitral valve leaflets are mildly thickened. Mild mitral regurgitation is present. Mild tricuspid regurgitation present. The right ventricular systolic pressure, as measured by Doppl er, is 30.35mmHg. Pulmonic valve appears structurally normal. The aortic root size is normal. The inferior vena cava is mildly dilated. The pericardium is normal. CONCLUSIONS -------- 1. Paced rhythm. 2. This was a technically good study. 3. The left ventricular size is normal. 4. There is mild concentric left ventricular hypertrophy. 5. Overall left ventricular systolic function is mildly impaired with, an EF between 45 - 50 %. 6. Basal inferolateral hypokinesis. 7. The right ventricle is normal in size and function. 8. The left atrium is normal in size. 9. The right atrium is normal in size. 10. Aortic valve is trileaflet and is mildly thickened. 11. The mitral valve leaflets are mildly thickened. 12. Mild mitral regurgitation is present. 13. Mild tricuspid regurgitation present. 14. The right ventricular systolic pressure, as measured by Doppler, is 30.35mmHg. 15. Pulmonic valve appears structurally normal. 16. The aortic root size is normal. 17. The inferior vena cava is mildly dilated. 18. The pericardium is normal. PAINTING INSTRUCTOR: Lindsay Syed RDCS
[2018-02-23] MEDS ORDERED: METOPROLOL TARTRATE 50 MG TAB PO STA (13:30)
[2018-02-23] MEDS: MULTIVITAMINS, THERA 1 EACH TAB PO SCH (14:40)
[2018-02-23] MEDS: SPIRONOLACTONE 25 MG TAB PO SCH (14:40)
--- NOTE | 2018-02-23 19:27 | P.PN ---
Subjective Progress Note Date: 02/23/18 The patient an 82-year-old woman who presented to the hospital with episode of lightheadedness. states she feels much better today. He has been walking but still feels unsure of herself. There is been no new changes. His only noticed improvement in the lightheadedness. She denied any weakness or numbness or visual changes. She denies any headache or vertigo. She is being treated for ear infection. Objective - Vital Signs Vital signs: Vital Signs Temp 98.4 F 02/23/18 15:37 Pulse 115 H 02/23/18 15:37 Resp 16 02/23/18 07:42 BP 145/89 02/23/18 15:37 Pulse Ox 95 02/23/18 07:42 Intake & Output 02/23/18 02/23/18 02/24/18 06:59 18:59 06:59 Intake Total 708 Balance 708 Intake: Oral 708 Other: Voiding Method Toilet Toilet - Constitutional General appearance: Present: obese - EENT Eyes: Present: EOMI ENT: Present: hearing grossly normal - Neurologic Neurologic Comment(s): Mental status: He was awake alert and oriented 3. Her speech was fluent. There is no aphasia or dysarthria. Neurologic: Present: CNII-XII intact - Musculoskeletal Musculoskeletal: Present: strength equal bilaterally - Psychiatric Psychiatric: Present: appropriate affect - Labs CBC & Chem 7: 02/23/18 06:35 02/23/18 06:35 Labs: Abnormal Lab Results - Last 24 Hours (Table) 02/23/18 02/23/18 Range/Units 06:35 06:35 MCHC 30.3 L (31.0-37.0) g/dL Carbon Dioxide 31 H (22-30) mmol/L BUN 18 H (7-17) mg/dL Glucose 105 H (74-99) mg/dL Microbiology - Last 24 Hours (Table) 02/22/18 15:38 Blood Culture - Preliminary Blood No Growth after 24 hours 02/22/18 Unknown Urine Culture - Preliminary Urine,Voided Assessment and Plan (1) Near syncope Current Visit: Yes Status: Acute SNOMED Code(s): 161246025 Plan: The patient is a 82-year-old woman with history of near syncope. She has been having episodes of lightheadedness as if she is going to pass out but there was no loss of consciousness. The patient reports that she is feeling better today. Recommend follow-up with cardiology outpatient. Recommend physical therapy to assess patient before discharge.
[2018-02-23] MEDS: MONTELUKAST 10 MG TAB PO SCH (20:08)
[2018-02-23] MEDS: ACETAMINOPHEN TAB 325 MG TAB PO PRN (22:51)
--- NOTE | 2018-02-23 23:39 | DS ---
DISCHARGE SUMMARY DATE OF SERVICE: 02/23/2018 FINAL DIAGNOSES: 1. Syncope possibly vasovagal with orthostatic hypotension. 2. Atrial ablation with pacemaker. 3. Dehydration. 4. Urinary tract infection. 5. Sleep apnea. 6. History of degenerative joint disease. 7. History of asthma. 8. Hypothyroidism. 9. History of DJD. 10.History of cataract surgery. DISCHARGE DISPOSITION: The patient will be discharged in stable condition with guarded prognosis. HISTORY OF PRESENT ILLNESS: This 82-year-old woman with past medical history of multiple medical problems was admitted with syncope and multiple medical issues. The patient was hydrated and Cardiology saw the patient. Beta-blockers are added and the patient improved significantly. On exam, vitals are stable. CARDIOVASCULAR: S1, S2 muffled. ABDOMEN: Soft. DISCHARGE INSTRUCTIONS: 1. Discharge diet is cardiac diet. 2. Activity limited until followup. 3. Follow up with Cardiology as advised. 4. Follow up with primary care physician as advised. DISCHARGE MEDICATIONS: 1. Ventolin 1-2 puffs q.6h p.r.n. 2. Eliquis 5 mg p.o. b.i.d. 3. Aspirin 81 mg daily. 4. Ceftin 500 mg p.o. b.i.d. for 3 days. 5. Vitamin D3 2000 daily. 6. Flecainide 100 mg p.o. b.i.d. 7. Lasix 20 mg p.o. daily. 8. lasix 40 mg p.o. daily. 9. Synthroid 125 mcg p.o. daily. 10.Claritin 10 mg p.o. daily. 11.metoprolol 25 mg p.o. daily. 12.Singular 10 mg q.h.s. 13.Coenzyme Q 100 mg p.o. daily. The patient will be discharged once cleared by Cardiology and recommend close follow up with the patient's own job development specialist. MMODL / IJN: [id number] / MTDJuan Diego
[2018-02-24 06:59] LABS: Basophils % (A) 1 %; Eosinophils # (A) 0.6 k/uL (0-0.7); Eosinophils % (A) 8 %; HCT 40.8 % (34.0-46.0); HGB 12.8 gm/dL (11.4-16.0); Hypochromasia Moderate; Lymphocytes # (A) 1.5 k/uL (1.0-4.8); Lymphocytes % (A) 21 %; MCH 29.3 pg (25.0-35.0); MCHC 31.3 g/dL (31.0-37.0); MCV 93.5 fL (80.0-100.0); Mean Platelet Volume 8.4; Monocytes # (A) 0.4 k/uL (0-1.0); Monocytes % (A) 6 %; Neutrophils # (A) 4.3 k/uL (1.3-7.7); Neutrophils % (A) 62 %; Platelet Count 197 k/uL (150-450); RBC 4.37 m/uL (3.80-5.40); RDW 15.3 % (11.5-15.5); WBC 6.9 k/uL (3.8-10.6)
[2018-02-24 07:15] LABS: Calcium 8.9 mg/dL (8.4-10.2); Potassium 3.8 mmol/L (3.5-5.1)
[2018-02-24] MEDS: SODIUM CHLORIDE 0.9% 1,000 ML IV SCH (07:41)
[2018-02-24] MEDS: LEVOTHYROXINE 125 MCG TAB PO SCH (08:00)
[2018-02-24] MEDS: METOPROLOL SUCCINATE (ER) 25 MG TAB.ER.24H PO SCH (08:00)
[2018-02-24] MEDS: FLECAINIDE 50 MG TAB PO SCH (08:00)
[2018-02-24] MEDS: APIXABAN 5 MG TAB PO SCH (08:00)
[2018-02-24] MEDS: CHOLECALCIFEROL 1,000 UNIT TAB PO SCH (08:00)
[2018-02-24] MEDS: VALSARTAN 40 MG TAB PO SCH (08:00)
[2018-02-24] MEDS: LORATADINE 10 MG TAB PO SCH (08:00)
[2018-02-24] MEDS: cefTRIAXone IN SWFI 1,000 MG/10 ML SYRINGE IVP SCH (08:01)
[2018-02-24] MEDS: FUROSEMIDE 20 MG TAB PO SCH ×2 (08:01→15:20)
[2018-02-24 08:21] VITALS: RESP 18
[2018-02-24] MEDS ORDERED: ASPIRIN 81 MG PO SCH (09:00)
--- NOTE | 2018-02-24 10:04 | PN ---
PROGRESS NOTE Mrs. Garcia is an 82-year-old female with a known history of chronic persistent atrial fibrillation, history of permanent pacemaker implantation, who presented with symptoms of dizziness. She is feeling better today. Her breathing is better. She denies any symptoms of chest pain. She denies any dizziness at this point. She denies any palpitation. Her ventricular response is under better control. She continues to be on Eliquis 5 mg twice a day, aspirin 81 mg daily, flecainide 100 mg twice a day, furosemide 40 in the morning, 20 in the afternoon, levothyroxine, metoprolol succinate 25 mg daily, spironolactone 25 mg daily, and Diovan 40 mg twice a day. PHYSICAL EXAMINATION: Blood pressure 140/90 with a heart rate in the 90s. HEAD: Normocephalic. EYES: Sclerae anicteric. NECK: No bruit. LUNGS: Clear to auscultation. HEART: Irregular, irregular. S1, S2. No S3 with a systolic murmur and diastolic murmur. ABDOMEN: Soft, nontender. EXTREMITIES: No edema. She had an echocardiogram done yesterday that showed ejection fraction 45% to 50% with basal inferolateral hypokinesis. IMPRESSION: 1. Dizziness, resolving. 2. Atrial fibrillation, persistent. 3. Status post permanent pacemaker implantation. 4. Mild cardiomyopathy on the echocardiogram. RECOMMENDATION: From the cardiac standpoint, I increased the dose of her beta ryann to optimize her heart rate control. She should be able to be discharged home today and follow up with her primary soil science professor. She may require a myocardial perfusion imaging that can be done by her primary soil science professor. MMODL / IJN: [id number] /
[2018-02-24] MEDS: MULTIVITAMINS, THERA 1 EACH TAB PO SCH (11:29)
[2018-02-24 11:38] VITALS: BP 131/96; PULSE 97; TEMP 97.5
[2018-02-24] MEDS: SPIRONOLACTONE 25 MG TAB PO SCH (15:20)
--- NOTE | 2018-02-24 17:44 | P.DS ---
Providers Date of admission: 02/22/18 02:45 Attending physician: Antonette Castillo Consults: 02/22/18 02:44 Consult Physician Routine Consulting Provider: Vanessa Stephen Consult Reason/Comments: near syncope Do you want consulting provider notified?: Yes 02/22/18 03:13 Consult Physician Routine Consulting Provider: Austen Varner Consult Reason/Comments: near syncope Do you want consulting provider notified?: Yes Primary care physician: [facility] Course: Patient is an 82-year-old female admitted with near syncopal episode patient is found to be in atrial fibrillation with rapid and regular rate patient is on anticoagulation with the Eliquis, does have history of sick sinus syndrome status post was pacemaker placement. Patient was evaluated by cardiology and they increase the dose of metoprolol patient was on flecainide which is being continued patient was also started on ELIE inhibitor and Aldactone by cardiology which are being continued. Patient will be discharged on ELIE inhibitor but not aldactone Patient has mildly decreased ejection fraction of 40 with 50%. PHYSICAL EXAMINATION: GENERAL: The patient is alert and oriented x3, not in any acute distress. Well developed, well nourished. HEENT: Pupils are round and equally reacting to light. EOMI. No scleral icterus. No conjunctival pallor. Normocephalic, atraumatic. No pharyngeal erythema. No thyromegaly. CARDIOVASCULAR: S1 and S2 present. No murmurs, rubs, or gallops. Patient still remains bit tachycardic with the heart rate in 100s patient does have chronic A. fib PULMONARY: Chest is clear to auscultation, no wheezing or crackles. ABDOMEN: Soft, nontender, nondistended, normoactive bowel sounds. No palpable organomegaly. MUSCULOSKELETAL: No joint swelling or deformity. EXTREMITIES: No cyanosis, clubbing, or pedal edema. NEUROLOGICAL: Gross neurological examination did not reveal any focal deficits. SKIN: No rashes. Her chronic medical problems hospitalization course please refer to dictation from Dr. Gil yesterday Patient Condition at Discharge: Fair Plan - Discharge Summary Discharge Rx Participant: No New Discharge Prescriptions: New Cefuroxime Axetil [Ceftin] 500 mg PO BID #6 tab Metoprolol Succinate (ER) [Toprol XL] 50 mg PO DAILY #30 tab.er.24h Spironolactone [Aldactone] 25 mg PO DAILY@1500 #30 tab Valsartan [Diovan] 40 mg PO BID #60 tab Continue Montelukast Sodium [Singulair] 10 mg PO HS Levothyroxine Sodium [Synthroid] 125 mcg PO DAILY Furosemide [Lasix] 20 mg PO DAILY@1500 Cholecalciferol [Vitamin D3] 2,000 unit PO DAILY Loratadine [Claritin] 10 mg PO DAILY Aspirin 81 mg PO DAILY Ubidecarenone [Co Q-10] 100 mg PO DAILY Apixaban [Eliquis] 5 mg PO BID Furosemide [Lasix] 40 mg PO DAILY Flecainide Acetate 100 mg PO Q12H Albuterol Inhaler [Ventolin Hfa Inhaler] 1 - 2 puff INHALATION RT-Q6H PRN PRN Reason: Shortness Of Breath Or Wheezing Discontinued Metoprolol Succinate (ER) [Toprol XL] 25 mg PO DAILY Discharge Medication List Aspirin 81 mg PO DAILY 12/10/16 [History] Cholecalciferol [Vitamin D3] 2,000 unit PO DAILY 12/10/16 [History] Furosemide [Lasix] 20 mg PO DAILY@1500 12/10/16 [History] Levothyroxine Sodium [Synthroid] 125 mcg PO DAILY 12/10/16 [History] Loratadine [Claritin] 10 mg PO DAILY 12/10/16 [History] Montelukast Sodium [Singulair] 10 mg PO HS 12/10/16 [History] Albuterol Inhaler [Ventolin Hfa Inhaler] 1 - 2 puff INHALATION RT-Q6H PRN [History] Apixaban [Eliquis] 5 mg PO BID 02/22/18 [History] Flecainide Acetate 100 mg PO Q12H 02/22/18 [History] Furosemide [Lasix] 40 mg PO DAILY 02/22/18 [History] Ubidecarenone [Co Q-10] 100 mg PO DAILY 02/22/18 [History] Cefuroxime Axetil [Ceftin] 500 mg PO BID #6 tab 02/23/18 [Rx] Metoprolol Succinate (ER) [Toprol XL] 50 mg PO DAILY #30 tab.er.24h 02/24/18 [Rx ] Spironolactone [Aldactone] 25 mg PO DAILY@1500 #30 tab 05/30/18 [Rx] Valsartan [Diovan] 40 mg PO BID #60 tab 02/24/18 [Rx] Follow up Appointment(s)/Referral(s): pcp, [Other] - 1 Week Patient Instructions/Handouts: Syncope (DC) Activity/Diet/Wound Care/Special Instructions: Follow-up with primary wildlife and game protector for evaluation and testing including a stress test Discharge Disposition: HOME SELF-CARE
[2018-02-25] MEDS ORDERED: METOPROLOL SUCCINATE (ER) 50 MG TAB.ER.24H PO SCH (09:00)
--- NOTE | 2018-03-08 16:08 | CDI ---
Outpatient Documentation Clarification Form Date: 03-08-18 CDS/Optical Fabricator Name: ELVIRA ARENAS Phone: If any questions, call [employer] [place] [employer] Mechanic at [phone] Patient Name: URSULA ROQUE Admit Date: 02-23-18 Discharge Date: 02-24-18 ATTENTION: The [facility] Coding Staff appreciate your assistance in clarifying documentation. Please respond to the clarification below the line at the bottom and electronically sign. The [facility] Coding staff will review the response and follow-up if needed. Please note: Queries are made part of the Legal Health Record. If you have any questions, please contact the Aircraft General Repair Mechanic. Dear Dr. PAUL, Per the History and Physical under Physical Examination of the legs: "discoloration secondary to cellulitis present". Patient is on antibiotics. If the patient has cellulitis, please add "cellulitis" below the line on this document. If cellulitis is ruled out, please add "cellulitis ruled out" below the line on this document. Thank you for your time and consideration, Elvira Arenas ellulitis ruled out MTDD
== END 2018-02-24 17:50 | disposition home or self-care (01) ==
LOC: EC 02:29 → 4MS4W 02:45 → 3OBS 11:44
PROVIDERS: ADMIT Internal Medicine; ATTEND Internal Medicine
DX: R55 Syncope and collapse (principal); I48.2 Chronic atrial fibrillation; Z95.0 Presence of cardiac pacemaker; E86.0 Dehydration; N39.0 Urinary tract infection, site not specified; G47.30 Sleep apnea, unspecified; Z99.89 Dependence on other enabling machines and devices; M19.90 Unspecified osteoarthritis, unspecified site; J45.909 Unspecified asthma, uncomplicated; E03.9 Hypothyroidism, unspecified; H66.91 Otitis media, unspecified, right ear; Z79.01 Long term (current) use of anticoagulants; Z79.82 Long term (current) use of aspirin; Z79.899 Other long term (current) drug therapy; Z79.890 Hormone replacement therapy; Z88.2 Allergy status to sulfonamides; Z80.51 Family history of malignant neoplasm of kidney; E66.9 Obesity, unspecified; Z68.42 Body mass index [BMI] 45.0-49.9, adult; I95.1 Orthostatic hypotension; I10 Essential (primary) hypertension; R11.0 Nausea; I49.5 Sick sinus syndrome; I48.1 Persistent atrial fibrillation
CPT/HCPCS: 99285 ×2; 96374; 96376 ×2; 36415; 94760; 93005; 93306; 97161; 85379; 80053; 80048 ×2; 84443; 84484; 85025 ×3; 87040; 87086; G0378 ×4; J0696 ×3